=== PATIENT | female | born 1950 | race Two or more races ===

== ENCOUNTER 2019-01-05 06:59 | Day surgery (SDC) | payer MEDICARE, OTHER ==
--- NOTE | 2018-12-30 11:09 | Pre-Procedure Note/Attestation ---
Pre-Procedure Note/Attestation Complete Prior to Procedure Planned Procedure: right Procedure Narrative: Cataract extraction with intraocular lens implant right eye Indications for Procedure Pre-Operative Diagnosis: Posterior subcapsular cataract right eye Attestation I attest that I discussed the nature of the procedure; its benefits; risks and complications; and alternatives (and the risks and benefits of such alternatives ), prior to the procedure, with the patient (or the patient's legal enrollment representative). I attest that, if there was a reasonable possibility of needing a blood transfusion, the patient (or the patient's legal enrollment representative) was given the [facility] standardized written summary, pursuant to the Jonathan Penngrove Blood Safety Act ([place] Health and Safety Code # 1645, as amended). I attest that I re-evaluated the patient just prior to the surgery and that there has been no change in the patient's H&P, except as documented below: Terry Rose MD Dec 30, 2018 11:08
--- NOTE | 2019-01-02 14:46 | NUR ---
[employer] translation services used to obtained medical history with bindery technician Paulette ID# [id number].
[~2019-01-05] VITALS: Ht 154.9 cm; Wt 64.4 kg
[~2019-01-05 06:59] MED LIST: GLIPIZIDE5 MG ORAL; LISINOPRIL20 MG ORAL; METFORMIN HCL1000 M1 ORAL
[2019-01-05] MEDS ORDERED: Diclofenac Sod 0.1% Op Soln RIGHT EYE SCH (07:00)
[2019-01-05] MEDS ORDERED: Phenylephrine 10% Opth Soln 5ml RIGHT EYE SCH (07:00)
[2019-01-05] MEDS ORDERED: Tropicamide 1% Opth 15ml Soln RIGHT EYE SCH (07:00)
[2019-01-05] MEDS ORDERED: Akten 3.5% 1ml Btl RIGHT EYE ONE (07:00)
[2019-01-05] MEDS ORDERED: Tetracaine 0.5% Opth 4ml Soln RIGHT EYE ONE (07:00)
[2019-01-05] MEDS ORDERED: Proparacaine 0.5% Opth Soln 15ml RIGHT EYE ONE (07:00)
[2019-01-05] MEDS ORDERED: Cyclopentolate 1% Opth Sol 2ml RIGHT EYE SCH (07:00)
[2019-01-05] MEDS ORDERED: Tobramycin Op Soln 0.3% 5ml RIGHT EYE SCH (09:30)
== END 2019-01-21 12:16 | disposition home or self-care (01) ==
LOC: SUR 06:59
DX: H25.041 Posterior subcapsular polar age-related cataract, right eye (principal); Z53.8 Procedure and treatment not carried out for other reasons

== ENCOUNTER 2019-11-10 06:03 | Day surgery (SDC) | payer MEDICARE, OTHER ==
[2019-11-09 08:46] LABS: EOSINOPHILS % (AUTO) 1.3 % (0.0-3.0); HEMOGLOBIN 12.8 G/DL (12.0-16.0); LYMPHOCYTES % (AUTO) 23.1 % (20.0-45.0); MEAN CORPUSCULAR VOLUME 88 FL (80-99); MONOCYTES % (AUTO) 5.3 % (1.0-10.0); NEUTROPHILS % (AUTO) 69.3 % (45.0-75.0); PLATELET COUNT 298 K/UL (150-450); RED BLOOD COUNT 4.34 M/UL (4.20-5.40); RED CELL DISTRIBUTION WIDTH 11.8 % (11.6-14.8); WHITE BLOOD COUNT 5.2 K/UL (4.8-10.8)
[2019-11-09 09:32] LABS: ANION GAP 8 mmol/L (5-15); BLOOD UREA NITROGEN 10 mg/dL (7-18); CALCIUM 10.1 MG/DL (8.5-10.1); CARBON DIOXIDE 30 MMOL/L (21-32); CHLORIDE 95 MMOL/L (98-107); CREATININE 0.7 MG/DL (0.55-1.30); POTASSIUM 4.4 MMOL/L (3.5-5.1); SODIUM 132 MMOL/L (136-145)
--- NOTE | 2019-11-09 13:17 | Opthalmology H&P ---
Ophthalmology H&P H&P Chief Complaint: decreased vision in right eye HPI Vision Affects Ability to: read, manage personal affairs Past Ocular History: retinal problems - vitreous hem OD HPI Narrative Floaters and blurry vision Exam Visual Acuity: OD Hand motion OS 20/125 Tension: OD 23 OS 14 Eye Exam: normal OU: external exam, palpebral fissure-width, marginal reflex distance, levator function, corneas, anterior chambers, lens; findings: fundus exam - Vitreous Hem. OD- PDR/ME OU Assessment/Plan Treatment Plan: other - Parsplana vitrectomy with endo laser Goals of Treatment: improvement of vision, enhance quality of life Attestation Attestation The risks and benefits of the surgery as well as alternative procedures were explained to the patient in detail. Terry Rose MD Nov 09, 2019 13:17
--- NOTE | 2019-11-09 13:19 | Pre-Procedure Note/Attestation ---
Pre-Procedure Note/Attestation Complete Prior to Procedure Planned Procedure: right Procedure Narrative: Pars plana vitrectomy with endolaser right eye Indications for Procedure Pre-Operative Diagnosis: Vitreous Hemorrhage right eye Attestation I attest that I discussed the nature of the procedure; its benefits; risks and complications; and alternatives (and the risks and benefits of such alternatives ), prior to the procedure, with the patient (or the patient's legal appliance service representative). I attest that, if there was a reasonable possibility of needing a blood transfusion, the patient (or the patient's legal appliance service representative) was given the [facility] standardized written summary, pursuant to the Jonathan Rehan Blood Safety Act ([place] Health and Safety Code # 1645, as amended). I attest that I re-evaluated the patient just prior to the surgery and that there has been no change in the patient's H&P, except as documented below: Terry Rose MD Nov 09, 2019 13:19
[~2019-11-10] VITALS: Ht 157.5 cm; Wt 65.8 kg
[2019-11-10] VITALS (8 sets, daily range): BP systolic 139–180; BP diastolic 67–76
[2019-11-10] MEDS ORDERED: EPINEPHrine 1mg/1ml Amp ONE (06:50)
[2019-11-10] MEDS ORDERED: Povidone-Iodine 5% opth solution ONE (06:51)
[2019-11-10] MEDS ORDERED: Lidocaine 2% MPF 5ml Vial INJ ONE (06:51)
[2019-11-10] MEDS ORDERED: Kenalog-40 1ml Vial ONE (06:51)
[2019-11-10] MEDS ORDERED: Hyaluronidase 150 units/ml vial ONE (06:51)
[2019-11-10] MEDS ORDERED: BSS 15ml BTL ONE (06:51)
[2019-11-10] MEDS ORDERED: BSS 500ml btl ONE (06:51)
[2019-11-10] MEDS ORDERED: Kenalog-10 5ml Inj ONE (06:51)
[2019-11-10] MEDS ORDERED: Bupivacaine 0.75% 30ml vial INJ ONE (06:51)
[2019-11-10] MEDS ORDERED: Akten 3.5% 1ml Btl RIGHT EYE ONE (07:00)
[2019-11-10] MEDS ORDERED: Tetracaine 0.5% Opth 4ml Soln RIGHT EYE ONE (07:00)
[2019-11-10] MEDS ORDERED: prednisoLONE acetate 1% Opth Susp 1ml ONE (07:00)
[2019-11-10] MEDS ORDERED: Proparacaine 0.5% Opth Soln 15ml RIGHT EYE ONE (07:00)
[2019-11-10] MEDS ORDERED: Maxitrol Opth Oint 3.5gm ONE (07:00)
[2019-11-10] MEDS: Phenylephrine 10% Opth Soln 5ml RIGHT EYE SCH ×3 (07:02→07:21)
[2019-11-10] MEDS: Tropicamide 1% Opth 15ml Soln RIGHT EYE SCH ×3 (07:02→07:21)
[2019-11-10] MEDS: Diclofenac Sod 0.1% Op Soln RIGHT EYE SCH ×3 (07:03→07:22)
[2019-11-10] MEDS: Cyclopentolate 1% Opth Sol 2ml RIGHT EYE SCH ×3 (07:03→07:21)
[2019-11-10] MEDS: Tobramycin Op Soln 0.3% 5ml RIGHT EYE SCH ×3 (07:03→07:21)
[2019-11-10] MEDS ORDERED: Dyna-Hex 2% Top Sol 2oz TOPIC ONE (08:19)
[2019-11-10] MEDS ORDERED: Midazolam 2mg/2ml Inj ONE ×2 (08:48→09:36)
[2019-11-10] MEDS ORDERED: fentaNYL 100 mcg/2 mL IV ONE (08:48)
[2019-11-10] MEDS ORDERED: Sterile Water Irrig 1000ml IRRIG ONE (09:00)
[2019-11-10] MEDS ORDERED: LR 1000ml ONE (09:00)
[2019-11-10] MEDS ORDERED: NS Irrig 1000ml ONE (09:00)
[2019-11-10] MEDS ORDERED: Lidocaine 1% MPF 10mg/ml 5ml ONE (09:10)
[2019-11-10] MEDS ORDERED: Sodium Hyaluronate 10 mg/ml 0.85ml ONE (09:51)
--- NOTE | 2019-11-10 09:52 | Immediate Post-Op Evaluation ---
Immediate Post-Op Evalulation Immediate Post-Op Evalulation Procedure: right eye vitrectomy Date of Evaluation: Nov 10, 2019 Time of Evaluation: 09:50 IV Fluids: 500 Blood Pressure Systolic: 156 Blood Pressure Diastolic: 75 Pulse Rate: 64 Respiratory Rate: 14 O2 Sat by Pulse Oximetry: 98 Temperature (Fahrenheit): 97.5 Nausea: No Vomiting: No Patient Status: awake, reacts, patent Hydration Status: adequate Drug: none Rosaura Huang CRNA Nov 10, 2019 09:52
--- NOTE | 2019-11-10 09:52 | Anethesia Preoperative Eval ---
Anesthesia Pre-op PMH/ROS General Date of Evaluation: Nov 10, 2019 Time of Evaluation: 08:40 Anesthesiologist: tammi ASA Score: ASA 3 Mallampati Score Class I : Soft palate, uvula, fauces, pillars visible Class II: Soft palate, uvula, fauces visible Class III: Soft palate, base of uvula visible Class IV: Only hard plate visible Mallampati Classification: Class II Surgeon: adam Diagnosis: vitreous hemorrage Surgical Procedure: vitrectomy Anesthesia History: none Family History: no anesthesia problems Allergies: Uncoded Allergies: IV CONTRAST (Allergy, Severe, RASH , 03/05/19) MRI IV CONTRAST Medications: see eMAR Patient NPO?: Yes NPO Date: Nov 10, 2019 NPO Time: 00:01 Past Medical History Cardiovascular: Reports: HTN; Denies: CAD, MT, valve dz, arrhythmia, other Pulmonary: Denies: asthma, COPD, STEPHANIA, other Gastrointestinal/Genitourinary: Reports: GERD; Denies: CRI, ESRD, other Neurologic/Psychiatric: Denies: dementia, CVA, depression/anxiety, TIA, other Endocrine: Reports: DM; Denies: hypothyroidism, steroids, other HEENT: Reports: other - Vitreous hemorrage; Denies: cataract (L), cataract (R), glaucoma, N[place]ALTON (L), NONDALTON (R) Hematology/Immune: Denies: anemia, DVT, bleeding disorder, other Musculoskeletal/Integumentary: Denies: OA, RA, DJD, DDD, edema, other PSxH Narrative: cataract surgery Anesthesia Pre-op Phys. Exam Physician Exam Last Vital Signs Date Time Temp Pulse Resp B/P (MAP) Pulse Ox O2 Delivery O2 Flow Rate FiO2 11/10/19 07:25 Room Air 11/10/19 06:49 97.7 65 18 142/75 98 Constitutional: NAD Neurologic: CN 2-12 intact Cardiovascular: RRR Respiratory: CTA Gastrointestinal: S/NT/ND Airway Exam Mallampati Classification 2 Mallampati Score: Class II MO: full ROM: full Dentures: no upper, no lower Anesthesia Pre-op A/P Labs Chemistry Test 11/10/19 07:20 POC Whole Blood Glucose 102 MG/DL (74-106) Studies Pre-op Studies: EKG - sr Risk Assessment & Plan Assessment: covid neg Plan: mac Status Change Before Surgery: No Pre-Antibiotics Drug: none Rosaura Huang VEIN PUMPER Nov 10, 2019 09:52
[2019-11-10] MEDS ORDERED: fentaNYL 100 mcg/2 mL IV PRN (10:00)
--- NOTE | 2019-11-10 11:03 | 48 Hour Post Anesthesia Eval ---
Post Anesthesia Evaluation Procedure: right eye vitrectomy Date of Evaluation: Nov 10, 2019 Time of Evaluation: 11:02 Blood Pressure Systolic: 145 0: 50 Pulse Rate: 54 Respiratory Rate: 14 O2 Sat by Pulse Oximetry: 98 Airway: patent Nausea: No Vomiting: No Hydration Status: adequate Cardiopulmonary Status: stable Mental Status/LOC: patient returned to baseline Post-Anesthesia Complications: none Follow-up care needed: N/A Rosaura Huang CRNA Nov 10, 2019 11:02
--- NOTE | 2019-11-13 10:15 | Brief Operative Note ---
Immediate Post Operative Note Operative Note Chief Complaint: Blurry Vision Pre-op Diagnosis: Vitreous Hemorrhage right eye Procedure: Pars plana vitrectomy with endolaser right eye Findings: consistent w/pre-op dx studies Surgeon: Terry Rose MD Anesthesiologist: Rosaura Huang CRNA Anesthesia: MAC Specimen: none Complications: none Condition: stable Fluids: LR Estimated Blood Loss: none Drains: none Implant(s) used?: No Terry Rose MD Nov 13, 2019 10:15
--- NOTE | 2019-11-13 10:53 | Operative Note - PDOC ---
Operative Note Operative Note Date of Operation/Procedure: Nov 10, 2019 Chief Complaint: Blurry Vision Pre-op Diagnosis: Vitreous Hemorrhage right eye Procedure: Pars plana vitrectomy with endolaser right eye Operative Findings: consistent w/pre-op dx studies Surgeon: Terry Rose MD Anesthesiologist: Rosaura Huang CRNA Anesthesia: MAC Specimen: none Complications: none Condition: stable Fluids: LR Estimated Blood Loss: none Drains: none Implant(s) used?: No Indications for Procedure Vitreous Hemorrhage right eye Description of Procedure This patient has been complaining visually significant decrease in vision in the right eye with the best corrected visual acuity of hand motion. The patient complains of difficulties in performing activities of daily living and wants to manage personal affairs with comfort and accuracy and see well enough to move with safety at home and outdoors. The risks, benefits and alternatives of the procedure were discussed with the patient in the office prior to scheduling surgery. All questions from the patient were answered after the surgical procedure was explained in detail. The risks of the procedure as explained to the patient include, but are not limited to, pain, infection, bleeding, loss of vision, retinal detachment, need for further surgery, double vision, etc. Alternative procedures were discussed which include, to do nothing or seek a second opinion. Informed consent for this procedure was obtained from the patient. The patient was referred to a primary care physician for a cardiopulmonary clearance prior to surgery, after proper evaluation was done patient was properly scheduled for outpatient surgery. The patient was brought to the operating room where the anesthesiologist established I.V. lines and cardiac monitoring leads. The patient was then prepped and draped in typical sterile fashion for ophthalmic surgery. An G 23 trocar infusion cannula was inserted in the inferotemporal quadrant, approximately 4 mm posterior to the limbus. The infusion cannula was confirmed to be in appropriate position prior to initiating infusion. The light pipe and the vitrector were inserted into the eye and a core vitrectomy was performed under wide field visualization. The vitrectomy instrument was used to engage the posterior vitreous hemorrhage. Once this was done, the posterior heme was dissected using the vitrectomy instrument. Vitreous dissection was then extended out to the periphery as far as safely possible.The peripheral retina endolaser photocoagulation was then applied. Good reaction was achieved. After adequate laser application was completed, indirect ophthalmoscopy was performed.The trocar was then removed.After this was done, all the wounds were reinspected, confirmed to be well sealed and the eye had an appropriate intraocular pressure.Antibiotic ointment was then placed in the eye.~ Then, the eye was patched in typical fashion for ophthalmologic surgery. The patient tolerated the procedure well and was transferred to the recovery room in good condition.Proper postoperative management was reviewed with the patient prior to discharge and advised to follow up the next day.. Terry Rose MD Nov 13, 2019 10:53
== END 2019-11-10 11:05 | disposition home or self-care (01) ==
LOC: SUR 06:03
DX: H43.11 Vitreous hemorrhage, right eye (principal)
CPT/HCPCS: 36415; 67039; 80048; 82962; 85025; 85610; 85730; 93005; 94003; J0171; J1100; J2250; J2704; J3010; J3470; J3490; J7120; U0002; 94150